=== PATIENT | female | born 1995 | race African-American/Black ===

== ENCOUNTER 2017-08-31 02:39 | Emergency (ER) | payer SELFPAY ==
[2017-08-31 03:04] LABS: URINE HCG POC HCG POSITIVE (Negative)
[2017-08-31 03:15] LABS: BILIRUBIN,URINE NEGATIVE (NEG); CLARITY,URINE TURBID; COLOR,URINE AMBER; GLUCOSE,URINE NEGATIVE (NEG); NITRITE,URINE NEGATIVE (NEG); PH,URINE 5.5; PROTEIN,URINE 100 mg/dL (NEG-TRACE)
[2017-08-31 03:21] LABS: BACTERIA,URINE MANY /HPF (0-FEW); SQUAMOUS EPITHELIAL CELL,UR MANY /LPF; WBC,URINE TNTC /HPF (0-4)
[2017-08-31] MEDS: METOCLOPRAMIDE 10 MG TABLET. PO ×2 (03:25)
[2017-08-31] MEDS: ACETAMINOPHEN 500 MG TABLET PO ×2 (03:25)
[2017-08-31] MEDS ORDERED: ACETAMINOPHEN 500 MG TABLET PO ×2 (03:30)
== END 2017-08-31 03:37 | disposition home or self-care (01) ==
LOC: ER 02:39
DX: O21.0 Mild hyperemesis gravidarum (principal); O26.892 Other specified pregnancy related conditions, second trimester; R05 Cough; R10.9 Unspecified abdominal pain; Z3A.00 Weeks of gestation of pregnancy not specified
CPT/HCPCS: 81001; 81025; 87086; 99284; J8597

== ENCOUNTER 2018-10-30 13:17 | Emergency (ER) | payer SELFPAY ==
[~2018-10-30] VITALS: Ht 149.9 cm; Wt 98.4 kg
[~2018-10-30 13:17] MED LIST: METO10TA81 PO
[2018-10-30 13:26] VITALS: BP 137/69
--- NOTE | 2018-10-30 13:37 | PHYS DOC ---
Past Medical History Past Medical History: Asthma Past Surgical History: No Surgical History Alcohol Use: None Drug Use: None Adult General Chief Complaint Chief Complaint: ABSCESS HPI HPI Patient is a 23 year old female who presents with right armpit pain and swelling for the past 2 weeks. Patient has a previous history of abscesses. She notes that it has been improving over the past few days. No drainage. No fever. Nothing seems to make the symptoms better or worse.[] Review of Systems Review of Systems Constitutional: Denies fever or chills [] Eyes: Denies change in visual acuity, redness, or eye pain [] HENT: Denies nasal congestion or sore throat [] Respiratory: Denies cough or shortness of breath [] Cardiovascular: No chest pain or palpitations[] GI: There is been nausea, vomiting and, mild diarrhea for the past week. Also notes that she just finished a period that lasted longer than usual, at 3 weeks. Concerned about being [] : Denies dysuria or hematuria [] Musculoskeletal: Denies back pain or joint pain [] Integument: Denies rash or skin lesions [] Neurologic: Denies headache, focal weakness or sensory changes [] Endocrine: Denies polyuria or polydipsia [] All other systems were reviewed and found to be within normal limits, except as documented in this note. Allergies Allergies Allergies Coded Allergies Type Severity Reaction Last Updated Verified iodine Allergy Unknown 08/31/17 Yes Physical Exam Physical Exam Constitutional: Well developed, well nourished, no acute distress, non-toxic appearance. [] HENT: Normocephalic, atraumatic, bilateral external ears normal, oropharynx moist, no oral exudates, nose normal. [] Eyes: PERRLA, EOMI, conjunctiva normal, no discharge. [] Neck: Normal range of motion, no tenderness, supple, no stridor. [] Cardiovascular:Heart rate regular rhythm, no murmur [] Lungs & Thorax: Bilateral breath sounds clear to auscultation [] Abdomen: Bowel sounds normal, soft, no tenderness, no masses, no pulsatile masses. [] Skin: Warm, dry, no erythema, no rash right axilla there is a 1 cm nodule, no lymphadenopathy present mild tenderness to palpation. No fluctuance.. [] Back: No tenderness, no CVA tenderness. [] Extremities: No tenderness, no cyanosis, no clubbing, ROM intact, no edema. [] Neurologic: Alert and oriented X 3, normal motor function, normal sensory function, no focal deficits noted. [] Psychologic: Affect normal, judgement normal, mood normal. [] Current Patient Data Vital Signs Vital Signs Date Time Temp Pulse Resp B/P (MAP) Pulse Ox O2 Delivery O2 Flow Rate FiO2 10/30/18 13:26 97.7 92 16 137/69 (91) 97 Room Air 97.7 Lab Values Laboratory Tests Test 10/30/18 13:44 POC Urine HCG, Qualitative Hcg negative (Negative) EKG EKG [] Radiology/Procedures Radiology/Procedures [] Course & Med Decision Making Course & Med Decision Making Pertinent Labs and Imaging studies reviewed. (See chart for details) ED course: Patient arrived, was placed in bed, and tolerated exam well. She was able tolerate oral intake without any medication. She was able to provide a urine sample. After the return of her negative test, this was discussed with her, she voiced understanding. Plan was discussed with the patient, she voiced understanding of this as well. All questions were answered. Patient was discharged in improved condition. Medical decision making: This appears to be an abscess that is healing on its own however will assist with this. We'll also treat her nausea. She is not . No evidence of by mouth intolerance.[] Dragon Disclaimer Dragon Disclaimer This electronic medical record was generated, in whole or in part, using a voice recognition dictation system. Departure Departure Impression: Primary Impression: Cutaneous abscess of axilla Additional Impression: Nausea, vomiting, and diarrhea Disposition: 01 HOME, SELF-CARE Condition: IMPROVED Referrals: UNKNOWN PCP NAME (PCP) Patient Instructions: Abscess, Nausea and Vomiting Additional Instructions: Drink plenty of fluids, frequent small sips. No fatty foods, no milk, and no pepper for the next 48 hours. For the next 48 hours eat a diet rich in carbohydrates with foods such as bananas, rice, applesauce, and toast. Follow- up with your regular doctor in 2 days. If you do not have regular doctor list of local clinics will be provided for you. Return to the ER if unable to tolerate liquids or any other concerns. Scripts Metoclopramide Hcl (REGLAN) 10 Mg Tablet 10 MG PO QIDACHS, #30 TAB 0 Refills Prov: JEFFREY TONY DO 10/30/18 Sulfamethoxazole/Trimethoprim (BACTRIM DS TABLET) 1 Each Tablet 1 TAB PO BID, #20 TAB Prov: JEFFREY TONY DO 10/30/18 Problem Qualifiers Primary Impression: Cutaneous abscess of axilla Laterality: right Qualified Codes: L02.411 - Cutaneous abscess of right axilla JEFFREY TONY DO Oct 30, 2018 13:37
[2018-10-30] MEDS ORDERED: METO10TA81 PO (13:58)
[2018-10-30] MEDS ORDERED: SULF1TAB24 PO (13:58)
[2018-10-30 13:59] LABS: BILIRUBIN,URINE NEGATIVE (NEG); CLARITY,URINE CLOUDY; COLOR,URINE YELLOW; NITRITE,URINE NEGATIVE (NEG); PROTEIN,URINE 30 mg/dL (NEG-TRACE); UROBILINOGEN,URINE 0.2 mg/dL (0.2 mg/dL)
[2018-10-30 14:48] LABS: SQUAMOUS EPITHELIAL CELL,UR MANY /LPF
[2018-10-30 14:49] LABS: BACTERIA,URINE MODERATE /HPF (0-FEW)
== END 2018-10-30 14:07 | disposition home or self-care (01) ==
LOC: ER 13:17
DX: L02.411 Cutaneous abscess of right axilla (principal); R11.2 Nausea with vomiting, unspecified; R19.7 Diarrhea, unspecified; J45.909 Unspecified asthma, uncomplicated; Z91.041 Radiographic dye allergy status
CPT/HCPCS: 81001; 81025; 87086; 99283

== ENCOUNTER 2018-12-19 09:54 | Emergency (ER) | payer MEDICAID, SELFPAY ==
[~2018-12-19] VITALS: Ht 149.9 cm; Wt 98.4 kg
[~2018-12-19 09:54] MED LIST changes: +SULF1TAB24 PO
[2018-12-19 10:01] VITALS: BP 157/82
--- NOTE | 2018-12-19 10:12 | PHYS DOC ---
Past Medical History Past Medical History: Asthma Past Surgical History: No Surgical History Alcohol Use: None Drug Use: None Adult General Chief Complaint Chief Complaint: BACK PAIN - NO INJURY HPI HPI Patient is a 23 year old female who presents with complaining of back pain. Patient complaining of thoracic back pain since she had her baby one year ago that getting worse for the last 5 days as a constant sharp pain without radiation. Patient rated her pain 10 over 10 and denies focal neuro deficit, fever and chills, urinary symptoms, nausea vomiting. Patient states she took ibuprofen without improvement of her pain. Patient states her LMP was November 12 and had negative home test but she is concern for possible because her menstruation is very late. Review of Systems Review of Systems Constitutional: Denies fever or chills [] Eyes: Denies change in visual acuity, redness, or eye pain [] HENT: Denies nasal congestion or sore throat [] Respiratory: Denies cough or shortness of breath [] Cardiovascular: No additional information not addressed in HPI [] GI: Denies abdominal pain, nausea, vomiting, bloody stools or diarrhea [] : Denies dysuria or hematuria [] Musculoskeletal: Reports back pain, denies joint pain [] Integument: Denies rash or skin lesions [] Neurologic: Denies headache, focal weakness or sensory changes [] Endocrine: Denies polyuria or polydipsia [] All other systems were reviewed and found to be within normal limits, except as documented in this note. Current Medications Current Medications Current Medications Medications (Trade) Dose Ordered Sig/[facility] Start Time Stop Time Status Last Admin Dose Admin Tramadol HCl (Ultram) 50 mg 1X ONCE 12/19/18 11:00 12/19/18 11:01 Allergies Allergies Allergies Coded Allergies Type Severity Reaction Last Updated Verified iodine Allergy Unknown 08/31/17 Yes Physical Exam Physical Exam Constitutional: Well developed, well nourished, mild distress, non-toxic appearance. [] HENT: Normocephalic, atraumatic Eyes: PERRLA, EOMI, conjunctiva normal, no discharge. [] Neck: Normal range of motion, no tenderness, supple, no stridor. [] Cardiovascular:Heart rate regular rhythm, no murmur [] Lungs & Thorax: Bilateral breath sounds clear to auscultation [] Abdomen: Bowel sounds normal, soft, no tenderness, no masses, no pulsatile masses. [] Skin: Warm, dry, no erythema, no rash. [] Back: No midline tenderness, thoracic spine without deformity or tenderness, no CVA tenderness. [] Extremities: No tenderness, no cyanosis, no clubbing, ROM intact, no edema. [] Neurologic: Alert and oriented X 3, normal motor function, normal sensory function, no focal deficits noted. [] Psychologic: Affect normal, judgement normal, mood normal. [] Current Patient Data Vital Signs Vital Signs Date Time Temp Pulse Resp B/P (MAP) Pulse Ox O2 Delivery O2 Flow Rate FiO2 12/19/18 10:01 97.9 85 18 157/82 (107) 98 Room Air 97.9 Lab Values Laboratory Tests Test 12/19/18 10:24 POC Urine HCG, Qualitative Hcg negative (Negative) EKG EKG [] Radiology/Procedures Radiology/Procedures [] Course & Med Decision Making Course & Med Decision Making Pertinent Labs reviewed. (See chart for details) Evaluation of patient in ER showed 23-year-old female patient presented to ER with chronic thoracic back pain and concern for test. As soon as the patient had out of negative test decided to leave. Prescription for Naprosyn was given for muscle pain. Dragon Disclaimer Dragon Disclaimer This electronic medical record was generated, in whole or in part, using a voice recognition dictation system. Departure Departure Impression: Primary Impression: Thoracic myofascial strain Additional Impression: Negative test Disposition: HOME, SELF-CARE (@1052) Condition: STABLE Referrals: NO PCP (PCP) Patient Instructions: Thoracic Strain Additional Instructions: Drink plenty of liquids Follow-up with your primary care physician in 3-5 days Return to ER if not getting better Apply ice on your back Scripts Naproxen (NAPROSYN) 500 Mg Tablet 1 TAB PO BID for pain, #20 TAB Prov: GORDON PONCE MD 12/19/18 Problem Qualifiers GORDON PONCE MD December 19, 2018 10:12
[2018-12-19 10:41] LABS: BILIRUBIN,URINE NEGATIVE (NEG); CLARITY,URINE CLOUDY; COLOR,URINE YELLOW; NITRITE,URINE NEGATIVE (NEG); PROTEIN,URINE NEGATIVE (NEG-TRACE)
[2018-12-19] MEDS ORDERED: NAPR-683 PO (10:54)
[2018-12-19] MEDS ORDERED: traMADol 50 MG TABLET PO ONE (11:00)
[2018-12-19 11:01] LABS: BACTERIA,URINE MODERATE /HPF (0-FEW); RBC,URINE 0 /HPF (0-2); SQUAMOUS EPITHELIAL CELL,UR MANY /LPF
== END 2018-12-19 10:58 | disposition home or self-care (01) ==
LOC: ER 09:54
DX: S29.012A Strain of muscle and tendon of back wall of thorax, initial encounter (principal); J45.909 Unspecified asthma, uncomplicated; X58.XXXA Exposure to other specified factors, initial encounter; Y93.89 Activity, other specified; Y92.89 Other specified places as the place of occurrence of the external cause; Y99.8 Other external cause status
CPT/HCPCS: 81001; 81025; 99283

== ENCOUNTER 2020-11-27 21:26 | Emergency (ER) | payer MEDICAID ==
[~2020-11-27] VITALS: Ht 149.9 cm; Wt 100.4 kg
[~2020-11-27 21:26] MED LIST changes: +NAPR-683 PO
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
[2020-11-27 23:00] LABS: BASO # 0.1 x10^3/uL (0.0-0.2); BASO % 1 % (0-3); EOS # 0.2 x10^3/uL (0.0-0.7); EOS % 1 % (0-3); HEMATOCRIT 34.8 % (36.0-47.0); HEMOGLOBIN 11.6 g/dL (12.0-15.5); LYMPH # 2.8 x10^3/uL (1.0-4.8); LYMPH % 24 % (24-48); MEAN CORPUSCULAR HEMOGLOBIN 29 pg (25-35); MEAN CORPUSCULAR HGB CONC 34 g/dL (31-37); MEAN CORPUSCULAR VOLUME 87 fL (79-100); MONO # 0.8 x10^3/uL (0.0-1.1); MONO % 7 % (0-9); NEUT # 7.7 x10^3/uL (1.8-7.7); NEUT % 66 % (31-73); PLATELET COUNT 248 x10^3/uL (140-400); RED BLOOD COUNT 3.99 x10^6/uL (3.50-5.40); RED CELL DISTRIBUTION WIDTH 13.2 % (11.5-14.5); WHITE BLOOD COUNT 11.6 x10^3/uL (4.0-11.0)
[2020-11-27 23:18] LABS: CALCIUM 8.6 mg/dL (8.5-10.1); CREATININE 0.5 mg/dL (0.6-1.0); POTASSIUM 3.6 mmol/L (3.5-5.1)
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
[2020-11-27 23:24] LABS: ALBUMIN 3.1 g/dL (3.4-5.0); ALBUMIN/GLOBULIN RATIO 0.8 (1.0-1.7); TOTAL BILIRUBIN 0.2 mg/dL (0.2-1.0); TOTAL PROTEIN 6.8 g/dL (6.4-8.2)
[2020-11-28 00:45] VITALS: BP 105/51
== END 2020-11-28 00:49 | disposition home or self-care (01) ==
LOC: ER 21:26
DX: O26.892 Other specified pregnancy related conditions, second trimester (principal); R10.9 Unspecified abdominal pain; J45.909 Unspecified asthma, uncomplicated; Z87.891 Personal history of nicotine dependence; Z91.040 Latex allergy status; Z3A.17 17 weeks gestation of pregnancy
CPT/HCPCS: 36415; 76815; 80053; 85025; 86900; 86901; 99284